=== PATIENT | female | born 1975 | race Two or more races ===

== ENCOUNTER 2017-12-12 18:17 | Inpatient (IN) | payer OTHER ==
[~2017-12-12] VITALS: Ht 167.6 cm; Wt 49.9 kg
[2017-12-12 19:30] LABS: CHLORIDE 106 mEq/L (98-107)
[2017-12-12 19:31] LABS: INR 1.4
[2017-12-12] MEDS ORDERED: SODIUM CHLORIDE 0.9% 1,000 ML IV ONE (20:08)
[2017-12-12] MEDS ORDERED: LEVOFLOXACIN 750MG PREMIX 150 ML IV ONE (20:15)
[2017-12-12 20:19] LABS: MEAN CORPUSCULAR HEMOGLOBIN 32.2 pg (28.0-32.0); MEAN CORPUSCULAR VOLUME 99.4 fL (81.0-99.0); RED BLOOD CELL COUNT 1.25 mill/uL (4.2-5.4); RED CELL DISTRIBUTION WIDTH 28.7 % (11.6-14.6)
[2017-12-12 20:46] LABS: HEMATOCRIT. 12.4 % (36.0-48.0)
[2017-12-12 20:47] LABS: PLATELET 17 x1000/uL (130-400)
[2017-12-12 20:55] LABS: HCG SCREEN NEGATIVE
[2017-12-12] MEDS ORDERED: FENTANYL CITRATE/PF 50MCG/ML 2ML VIAL IV ONE (21:15)
[2017-12-12 21:47] LABS: NUCLEATED RED BLOOD CELLS 24 /100 WBC
[2017-12-12 22:07] LABS: PLATELET ESTIMATE MARKEDLY DECREASED
[2017-12-12] MEDS ORDERED: IOHEXOL-350 100 ML BOTTLE ONE (22:27)
[2017-12-12] MEDS ORDERED: ONDANSETRON HCL 4MG/2ML VIAL IV ONE (23:00)
[2017-12-12] MEDS ORDERED: LORAZEPAM 2MG/ML CPJ IV ONE (23:00)
[2017-12-13] VITALS (77 sets, daily range): BP systolic 83–114; BP diastolic 41–76
[2017-12-13] MEDS ORDERED: CLONIDINE 0.1MG TABLET PO PRN
[2017-12-13] MEDS ORDERED: HYDROCODONE/ACETAMINOPHEN 5/325MG TABLET PO PRN
[2017-12-13] MEDS ORDERED: PHYTONADIONE 10MG/ML AMP SUBCUT NR
[2017-12-13] MEDS ORDERED: IPRATROPIUM/ALBUTEROL 0.5-3(2.5)MG/3ML NEB INH PRN
[2017-12-13] MEDS ORDERED: FENTANYL CITRATE/PF 50MCG/ML 2ML VIAL IV ONE
[2017-12-13] MEDS ORDERED: PANTOPRAZOLE SODIUM 40 MG/VIAL IV ONE
[2017-12-13] MEDS ORDERED: GUAIFENESIN 200MG/10ML SUGAR FREE UDC PO PRN
[2017-12-13 00:56] LABS: TOTAL IRON BINDING CAPACITY 185 ug/dL (250-450)
[2017-12-13] MEDS ORDERED: NICARDIPINE 100 MG in SODIUM CHLORIDE 0.9% 60 ML IV PRN (01:15)
[2017-12-13] MEDS: DEXT 5%/LACTATED RINGERS 1,000 ML IV SCH ×2 (04:40→21:40)
[2017-12-13 08:56] LABS: HEMATOCRIT. 21.5 % (36.0-48.0); HEMOGLOBIN. 7.5 g/dL (12.0-16.0); MEAN CORPUSCULAR HEMOGLOBIN 32.2 pg (28.0-32.0); MEAN CORPUSCULAR VOLUME 92.8 fL (81.0-99.0); MEAN PLATELET VOLUME 10.6 fl (7.4-10.4); RED BLOOD CELL COUNT 2.31 mill/uL (4.2-5.4); RED CELL DISTRIBUTION WIDTH 17.7 % (11.6-14.6)
[2017-12-13] MEDS ORDERED: LEVETIRACETAM 500MG PREMIX 100 ML IV SCH (09:00)
[2017-12-13] MEDS ORDERED: NOREPINEPHRINE 4 MG in SODIUM CHLORIDE 0.9% 246 ML IV PRN (09:00)
[2017-12-13 09:35] LABS: NUCLEATED RED BLOOD CELLS 27 /100 WBC; PLATELET ESTIMATE MARKEDLY DECREASED
[2017-12-13 09:37] LABS: PLATELET 20 x1000/uL (130-400)
[2017-12-13] MEDS: PANTOPRAZOLE SODIUM 40 MG/VIAL IV SCH (09:40)
[2017-12-13 10:12] LABS: CHLORIDE 112 mEq/L (98-107)
[2017-12-13 10:25] LABS: CREATINE KINASE 85 IU/L (26-192); CREATINE KINASE MB FRACTION < 0.5 ng/mL (0.5-3.6); HDL CHOLESTEROL 16 mg/dL (40-59); LDL CHOLESTEROL 86 mg/dL (5-100)
[2017-12-13] MEDS ORDERED: LIDOCAINE HCL 1% 20ML VIAL (Pyxis) INJ ONE (10:44)
[2017-12-13] MEDS ORDERED: GADOBENATE DIMEGLUMINE 529 MG/ML 10ML IV ONE (12:47)
[2017-12-13] MEDS: DOCUSATE SODIUM 100MG CAPSULE PO SCH (19:13)
[2017-12-13 19:45] LABS: CREATINE KINASE 81 IU/L (26-192); CREATINE KINASE MB FRACTION < 0.5 ng/mL (0.5-3.6)
[2017-12-13] MEDS: IPRATROPIUM/ALBUTEROL 0.5-3(2.5)MG/3ML NEB HHN SCH (20:22)
[2017-12-13] MEDS: LEVETIRACETAM 500MG PREMIX 100 ML IV SCH (21:40)
[2017-12-14] VITALS (98 sets, daily range): BP systolic 87–120; BP diastolic 6–86
[2017-12-14] MEDS: IPRATROPIUM/ALBUTEROL 0.5-3(2.5)MG/3ML NEB HHN SCH ×6 (00:03→20:32)
[2017-12-14 00:05] LABS: CLARITY URINE CLOUDY (CLEAR); COLOR URINE YELLOW (YELLOW); KETONES URINE TRACE (NEGATIVE); LEUKOCYTE ESTERASE URINE NEGATIVE (NEGATIVE); NITRITE URINE NEGATIVE (NEGATIVE); OCCULT BLOOD URINE 1+ (NEGATIVE); PH URINE 5.5 (4.5-8.0); PROTEIN URINE NEGATIVE (NEGATIVE); SPECIFIC GRAVITY URINE 1.053 (1.005-1.030)
[2017-12-14 01:23] LABS: *AMPHETAMINES SCREEN URINE NEGATIVE (NEGATIVE); *BARBITURATES SCREEN URINE NEGATIVE (NEGATIVE); *BENZODIAZEPINES SCREEN URINE NEGATIVE (NEGATIVE); *COCAINE SCREEN URINE NEGATIVE (NEGATIVE); CANNABINOID URINE SCREEN NEGATIVE (NEGATIVE); METHADONE URINE SCREEN NEGATIVE (NEGATIVE); PHENCYCLIDINE URINE SCREEN NEGATIVE (NEGATIVE)
[2017-12-14 01:26] LABS: OPIATES URINE SCREEN PRESUMTIVE POSITIVE (NEGATIVE)
[2017-12-14 05:42] LABS: MEAN CORPUSCULAR HEMOGLOBIN 32.7 pg (28.0-32.0); MEAN CORPUSCULAR VOLUME 91.8 fL (81.0-99.0); RED BLOOD CELL COUNT 2.15 mill/uL (4.2-5.4); RED CELL DISTRIBUTION WIDTH 18.3 % (11.6-14.6)
[2017-12-14 06:01] LABS: CHLORIDE 111 mEq/L (98-107)
[2017-12-14 06:03] LABS: HEMATOCRIT. 19.7 % (36.0-48.0)
[2017-12-14 06:04] LABS: PLATELET 16 x1000/uL (130-400)
[2017-12-14 08:07] LABS: FOLIC ACID (FOLATE) SERUM 11.9 ng/mL (>5.38)
[2017-12-14] MEDS ORDERED: IPRATROPIUM/ALBUTEROL 0.5-3(2.5)MG/3ML NEB HHN PRN (09:00)
[2017-12-14 09:02] LABS: BG BASE EXCESS -4.7 mmol/L (-2.0-2.0); BG CARBOXYHEMOGLOBIN 1.1 % (0.5-1.5); BG DEOXYHEMOGLOBIN 0.7 % (0.0-5.0); BG FRACTION INSPIRED OXYGEN 99.8; BG HCO3 ACT 17.4 mmol/L (22.0-26.0); BG METHEMOGLOBIN 0.2 % (0.0-1.5); BG OXYGEN SATURATION 99.3 % (92.0-98.5); BG PCO2 22.2 mmHg (35.0-45.0); BG PH 7.512 (7.350-7.450); BG PO2 341.6 mmHg (75.0-100.0); BG SAMPLE SITE RIGHT BRACHIAL; BG TOTAL HEMOGLOBIN 7.8 g/dL (12.0-18.0); BG VENT MODE MASK - NRB
[2017-12-14] MEDS: DOCUSATE SODIUM 100MG CAPSULE PO SCH ×2 (09:59→17:00)
[2017-12-14] MEDS: PANTOPRAZOLE SODIUM 40 MG/VIAL IV SCH (09:59)
[2017-12-14] MEDS: LEVETIRACETAM 500MG PREMIX 100 ML IV SCH ×2 (09:59→21:29)
[2017-12-14 10:32] LABS: NUCLEATED RED BLOOD CELLS 34 /100 WBC; PLATELET ESTIMATE MARKEDLY DECREASED
[2017-12-14 19:51] LABS: HEMATOCRIT. 24.7 % (36.0-48.0); HEMOGLOBIN. 8.5 g/dL (12.0-16.0); MEAN CORPUSCULAR HEMOGLOBIN 31.3 pg (28.0-32.0); MEAN CORPUSCULAR VOLUME 90.7 fL (81.0-99.0); MEAN PLATELET VOLUME 10.6 fl (7.4-10.4); RED BLOOD CELL COUNT 2.72 mill/uL (4.2-5.4); RED CELL DISTRIBUTION WIDTH 16.7 % (11.6-14.6)
[2017-12-14 19:59] LABS: INR 1.3; PARTIAL THROMBOPLASTIN TIME 30.4 sec (23.4-31.0); PROTHROMBIN TIME 13.6 sec (9.4-11.6)
[2017-12-14 19:59] LABS: PLATELET 19 x1000/uL (130-400)
[2017-12-14 20:09] LABS: NUCLEATED RED BLOOD CELLS 46 /100 WBC; PLATELET ESTIMATE MARKEDLY DECREASED
[2017-12-14 20:10] LABS: TOTAL IRON BINDING CAPACITY 140 ug/dL (250-450)
[2017-12-14 20:13] LABS: HAPTOGLOBIN <31.0 mg/dL (30-200)
[2017-12-14] MEDS: DEXT 5%/LACTATED RINGERS 1,000 ML IV SCH (21:29)
[2017-12-15] VITALS (49 sets, daily range): BP systolic 87–110; BP diastolic 46–73
[2017-12-15] MEDS: IPRATROPIUM/ALBUTEROL 0.5-3(2.5)MG/3ML NEB HHN SCH ×6 (01:06→20:42)
[2017-12-15] MEDS: DEXT 5%/LACTATED RINGERS 1,000 ML IV SCH ×2 (06:30→14:24)
[2017-12-15] MEDS: DOCUSATE SODIUM 100MG CAPSULE PO SCH ×2 (09:10→18:05)
[2017-12-15] MEDS: PANTOPRAZOLE SODIUM 40 MG/VIAL IV SCH (09:10)
[2017-12-15] MEDS: LEVETIRACETAM 500MG PREMIX 100 ML IV SCH ×2 (09:10→21:49)
[2017-12-15] MEDS ORDERED: DIPHENHYDRAMINE 50MG/ML VIAL IV PRN (21:45)
[2017-12-15] MEDS: MORPHINE SULFATE 4 MG/ML CPJ (NOT FOR IM USE) IV PRN (21:51)
[2017-12-15] MEDS: ONDANSETRON HCL 4MG/2ML VIAL IV PRN (21:51)
[2017-12-16] VITALS (25 sets, daily range): BP systolic 86–123; BP diastolic 36–72
[2017-12-16] MEDS: IPRATROPIUM/ALBUTEROL 0.5-3(2.5)MG/3ML NEB HHN SCH ×6 (00:44→20:08)
[2017-12-16] MEDS: MORPHINE SULFATE 4 MG/ML CPJ (NOT FOR IM USE) IV PRN ×4 (01:34→19:04)
[2017-12-16 05:46] LABS: HEMATOCRIT. 23.9 % (36.0-48.0); HEMOGLOBIN. 8.5 g/dL (12.0-16.0); MEAN CORPUSCULAR HEMOGLOBIN 32.2 pg (28.0-32.0); MEAN CORPUSCULAR VOLUME 90.8 fL (81.0-99.0); MEAN PLATELET VOLUME 11.2 fl (7.4-10.4); RED BLOOD CELL COUNT 2.64 mill/uL (4.2-5.4); RED CELL DISTRIBUTION WIDTH 17.6 % (11.6-14.6)
[2017-12-16 05:51] LABS: CHLORIDE 106 mEq/L (98-107)
[2017-12-16 06:37] LABS: PLATELET 14 x1000/uL (130-400)
[2017-12-16] MEDS: DEXT 5%/LACTATED RINGERS 1,000 ML IV SCH ×2 (08:30→23:55)
[2017-12-16] MEDS: LEVETIRACETAM 500MG PREMIX 100 ML IV SCH ×2 (08:59→22:16)
[2017-12-16] MEDS: DOCUSATE SODIUM 100MG CAPSULE PO SCH ×2 (09:00→18:10)
[2017-12-16] MEDS: PANTOPRAZOLE SODIUM 40 MG/VIAL IV SCH (09:00)
[2017-12-16] MEDS: ONDANSETRON HCL 4MG/2ML VIAL IV PRN ×2 (09:34→18:16)
[2017-12-16] MEDS ORDERED: POTASSIUM CHLORIDE 20MEQ/PACKET PO NR (11:45)
[2017-12-16 17:23] LABS: NUCLEATED RED BLOOD CELLS 21 /100 WBC; PLATELET ESTIMATE MARKEDLY DECREASED
[2017-12-16] MEDS: MORPHINE SULFATE 15MG TABLET SR PO SCH (18:10)
[2017-12-17] VITALS (15 sets, daily range): BP systolic 90–146; BP diastolic 51–64
[2017-12-17] MEDS: IPRATROPIUM/ALBUTEROL 0.5-3(2.5)MG/3ML NEB HHN SCH ×6 (00:07→20:45)
[2017-12-17] MEDS: ONDANSETRON HCL 4MG/2ML VIAL IV PRN ×3 (00:08→16:15)
[2017-12-17] MEDS: MORPHINE SULFATE 4 MG/ML CPJ (NOT FOR IM USE) IV PRN ×4 (00:09→20:18)
[2017-12-17] MEDS ORDERED: HYDROCODONE/ACETAMINOPHEN 5/325MG TABLET PO PRN (00:09)
[2017-12-17] MEDS: MORPHINE SULFATE 15MG TABLET SR PO SCH ×2 (05:57→17:51)
[2017-12-17] MEDS: DEXT 5%/LACTATED RINGERS 1,000 ML IV SCH ×2 (08:30→17:55)
[2017-12-17] MEDS: LEVETIRACETAM 500MG PREMIX 100 ML IV SCH ×2 (09:05→22:15)
[2017-12-17] MEDS: PANTOPRAZOLE SODIUM 40 MG/VIAL IV SCH (09:05)
[2017-12-17] MEDS: DOCUSATE SODIUM 100MG CAPSULE PO SCH ×2 (09:05→17:50)
[2017-12-18] VITALS: BP 101/59
[2017-12-18] MEDS: MORPHINE SULFATE 4 MG/ML CPJ (NOT FOR IM USE) IV PRN ×3 (00:36→09:08)
[2017-12-18] MEDS ORDERED: FENTANYL 25MCG/HR PATCH TOP SCH (01:00)
[2017-12-18] MEDS: DEXT 5%/LACTATED RINGERS 1,000 ML IV SCH (02:03)
[2017-12-18 04:00] VITALS: BP 95/58
[2017-12-18] MEDS: IPRATROPIUM/ALBUTEROL 0.5-3(2.5)MG/3ML NEB HHN SCH ×3 (04:00→08:00)
[2017-12-18] MEDS: MORPHINE SULFATE 15MG TABLET SR PO SCH (04:53)
[2017-12-18] MEDS: ONDANSETRON HCL 4MG/2ML VIAL IV PRN (04:55)
[2017-12-18 07:23] LABS: HEMATOCRIT. 25.9 % (36.0-48.0); HEMOGLOBIN. 8.5 g/dL (12.0-16.0); MEAN CORPUSCULAR HEMOGLOBIN 31.5 pg (28.0-32.0); MEAN CORPUSCULAR VOLUME 95.6 fL (81.0-99.0); MEAN PLATELET VOLUME 12.7 fl (7.4-10.4); RED BLOOD CELL COUNT 2.71 mill/uL (4.2-5.4)
[2017-12-18 07:44] LABS: CHLORIDE 105 mEq/L (98-107)
[2017-12-18 08:21] LABS: PLATELET 13 x1000/uL (130-400)
[2017-12-18] MEDS: DOCUSATE SODIUM 100MG CAPSULE PO SCH (09:00)
[2017-12-18 09:08] VITALS: BP 181/94
[2017-12-18] MEDS: PANTOPRAZOLE SODIUM 40 MG/VIAL IV SCH (09:14)
[2017-12-18] MEDS: LEVETIRACETAM 500MG PREMIX 100 ML IV SCH (09:14)
[2017-12-18 17:25] LABS: NUCLEATED RED BLOOD CELLS 24 /100 WBC; PLATELET ESTIMATE MARKEDLY DECREASED
== END 2017-12-18 09:55 | disposition expired | DRG 82 ==
LOC: ER 18:17 → EDBEDREQSVC 23:51 → EDBEDREQTM 23:51 → MICUNO 23:51 → EDBEDREQ 23:53 → ENRESERV 12-13 01:46 → 6WST 12-17 11:07
PROVIDERS: ADMIT Internal Medicine; ATTEND Internal Medicine
PROC: 30233N1 Transfusion of Nonautologous Red Blood Cells into Peripheral Vein, Percutaneous Approach (ICD-10-PCS; 2017-12-12)
PROC: 02HV33Z Insertion of Infusion Device into Superior Vena Cava, Percutaneous Approach (ICD-10-PCS; principal; 2017-12-13)
PROC: B548ZZA Ultrasonography of Superior Vena Cava, Guidance (ICD-10-PCS; 2017-12-13)
PROC: 30233R1 Transfusion of Nonautologous Platelets into Peripheral Vein, Percutaneous Approach (ICD-10-PCS; 2017-12-14)
DX: S06.5X9A Traumatic subdural hemorrhage with loss of consciousness of unspecified duration, initial encounter (principal); J96.01 Acute respiratory failure with hypoxia; R57.8 Other shock; C78.00 Secondary malignant neoplasm of unspecified lung; C79.31 Secondary malignant neoplasm of brain; D68.9 Coagulation defect, unspecified; C79.51 Secondary malignant neoplasm of bone; E46 Unspecified protein-calorie malnutrition; D61.82 Myelophthisis; Z68.1 Body mass index [BMI] 19.9 or less, adult; Z66 Do not resuscitate; R62.7 Adult failure to thrive; C50.919 Malignant neoplasm of unspecified site of unspecified female breast; X58.XXXA Exposure to other specified factors, initial encounter; K59.00 Constipation, unspecified; Z51.5 Encounter for palliative care; Z79.899 Other long term (current) drug therapy; Z90.10 Acquired absence of unspecified breast and nipple; Z92.21 Personal history of antineoplastic chemotherapy; Z92.3 Personal history of irradiation; Z99.81 Dependence on supplemental oxygen; Y93.89 Activity, other specified; Y92.89 Other specified places as the place of occurrence of the external cause; Y99.8 Other external cause status
CPT/HCPCS: 36415; 36430; 36569; 36600; 70450; 70553; 71045; 71275; 74177; 76937; 80048; 80053; 80061; 80076; 80305; 81003; 82247; 82248; 82375; 82550; 82553; 82607; 82728; 82746; 82805; 83010; 83540; 83550; 83605; 83615; 84443; 84484; 84703; 85025; 85044; 85384; 85610; 85651; 85730; 86850; 86900; 86920; 87040; 87086; 93005; 93306; 93970; 94640; 96365; 96366; 96375; 99291; A9577; C1725; C9113; J1200; J1953; J1956; J2060; J2270; J2405; J3010; J3490; J7030; J7040; J7050; J7620; P9016; P9034; Q9967